=== PATIENT | female | born 1980 | race African-American/Black ===

== ENCOUNTER 2018-01-21 07:11 | Emergency (ER) | payer BC ==
[~2018-01-21] VITALS: Ht 172.7 cm; Wt 114.8 kg
--- NOTE | 2018-01-21 07:26 | NUR ---
PT BROUGHT IN BY WHEEL CHAIR ACCOMPANIED BY FRIEND FOR C/C OF RIGHT SWOLLEN ANKLE S/P INJURY 3 WEEKS AGO PT ALERT AND ORIENTED X 4.
--- NOTE | 2018-01-21 09:04 | NUR ---
PATIENT LEFT WITH FRIEND IN WHEELCHAIR ACI WAS GIVEN. ULTRASOUND DONE NEGATIVE FOR PE. FOLLOW UP WITH PRIMARY DOCTOR
[2018-01-21 09:05] VITALS: BP 128/67
== END 2018-01-21 09:06 | disposition home or self-care (01) ==
LOC: ER 07:17
DX: S99.811A Other specified injuries of right ankle, initial encounter (principal); I10 Essential (primary) hypertension; F41.9 Anxiety disorder, unspecified; F32.9 Major depressive disorder, single episode, unspecified; X50.1XXA Overexertion from prolonged static or awkward postures, initial encounter; Y93.89 Activity, other specified; Y92.89 Other specified places as the place of occurrence of the external cause; Y99.8 Other external cause status
CPT/HCPCS: 73610-TC; 93971-TC; A4606; Z7610